=== PATIENT | male | born 1935 | race Caucasian/White ===

== ENCOUNTER 2021-08-31 19:09 | Emergency (ER) | payer MEDICARE, SELFPAY ==
[2021-08-31 19:20] VITALS: BP 118/58; PULSE 77; RESP 20; TEMP 36.7; O2SAT 97
--- NOTE | 2021-08-31 19:22 | ED.MALEGU ---
HPI - Male Genitourinary General Chief complaint: Urogenital-Male Stated complaint: Urinary Problem Time Seen by Provider: 08/31/21 19:39 Source: patient, family and RN notes reviewed Mode of arrival: ambulatory (with walker) Limitations: no limitations History of Present Illness HPI Narrative: 86-year-old male presented with son for concern for UTI. Endorses urinary frequency, dysuria, dizziness and weakness over the last week. Son explains patient has history of bladder cancer, completed a PET scan today. Son states symptoms are consistent with previous UTIs. Contacted his physician who recommended he go for evaluation at urgent care. Denies abd pain, n/v/d/f/c. Related Data Home Medications Medication Instructions Recorded Confirmed amiodarone 200 mg PO DAILY 08/31/21 08/31/21 atorvastatin 40 mg PO DAILY 08/31/21 08/31/21 carvedilol 3.125 mg PO BID 08/31/21 08/31/21 clopidogrel [Plavix] 75 mg PO DAILY 08/31/21 08/31/21 donepezil 5 mg PO HS 08/31/21 08/31/21 finasteride 5 mg PO DAILY 08/31/21 08/31/21 furosemide 20 mg PO DAILY 08/31/21 08/31/21 pantoprazole 40 mg PO QAM 08/31/21 08/31/21 potassium chloride 20 meq PO DAILY 08/31/21 08/31/21 sertraline 100 mg PO DAILY 08/31/21 08/31/21 tamsulosin 0.4 mg PO DAILY 08/31/21 08/31/21 Allergies Allergy/AdvReac Type Severity Reaction Status Date / Time metformin Allergy Diarrhea Verified 08/31/21 19:41 venlafaxine Allergy Unknown Verified 08/31/21 19:41 Review of Systems Review of Systems: CONSTITUTIONAL: Denies body aches, fever, chills, or sweats. CARDIOVASCULAR: Denies chest pain, palpitations, or edema. RESPIRATORY: Denies cough or dyspnea. GASTROINTESTINAL: Denies abdominal pain, nausea, vomiting, or diarrhea. GENITOURINARY: Reports frequency, urgency, denies dysuria, hematuria, flank pain SKIN: Denies rash, itching, or wounds. MUSCULOSKELETAL: Denies back pain or myalgia. PMFSH Comments At time of signature, I have reviewed and agree with nursing past medical, surgical, social and family history unless otherwise noted. Please see nursing chart for further information. There is no relevant family history pertinent to the presenting complaint Exam Narrative: GENERAL: ill-appearing, in no acute distress. HEAD: Normocephalic EYES: EOMI. . ENT: Mucous membranes pink and moist. NECK: Normal AROM. Supple. CHEST: No respiratory distress. Clear to auscultation. HEART: Regular rate and rhythm. ABDOMEN: Soft, nontender, nondistended, normal active bowel sounds. No CVA tenderness MUSCULOSKELETAL: No bony tenderness. SKIN: Warm, dry, no rash. pale, poor turgor NEURO: No focal deficits. A&ox3 Gait slow,unsteady; walker PSYCH: Normal affect. No signs of depression or anxiety. Course Course Emergency Course: Patient is aware of diagnosis, understands and agrees to treatment plan. Anticipatory guidance given. Patient agrees to follow-up as directed and is aware of reasons to seek care at the emergency department. Portions of this record may have been created with voice recognition software Level of Care: Express Care Visit Vital Signs Vital signs: Vital Signs Temperature 98.1 F 08/31/21 19:20 Pulse Rate 77 08/31/21 19:20 Respiratory Rate 20 08/31/21 19:20 Blood Pressure 118/58 L 08/31/21 19:20 Pulse Oximetry 97 08/31/21 19:20 Temperature 98.1 F 08/31/21 19:44 Pulse Rate 77 08/31/21 19:44 Respiratory Rate 20 08/31/21 19:44 Blood Pressure 118/58 L 08/31/21 19:44 Pulse Oximetry 97 08/31/21 19:44 Reviewed MDM - Male Genitourinary MDM Narrative Medical decision making narrative: Urine dip is reviewed with patient and son. Patient is advised to go to ER for further evaluation of his additional weakness and dizziness given his medical history. He is aware of the risks associated with not going to the ER including deteriorating condition and . They declined to go at this time and state they will appreciate an
[2021-08-31 19:44] VITALS: BP 118/58; PULSE 77; RESP 20; TEMP 36.7; O2SAT 97
== END 2021-08-31 20:23 | disposition home or self-care (01) ==
PROVIDERS: Emergency Provider Nurse Practitioner Family
DX: N39.0 Urinary tract infection, site not specified (principal); F03.90 Unspecified dementia, unspecified severity, without behavioral disturbance, psychotic disturbance, mood disturbance, and anxiety; I48.91 Unspecified atrial fibrillation; E78.00 Pure hypercholesterolemia, unspecified; I10 Essential (primary) hypertension; K21.9 Gastro-esophageal reflux disease without esophagitis; E11.9 Type 2 diabetes mellitus without complications; H26.9 Unspecified cataract; F32.A Depression, unspecified; Z95.810 Presence of automatic (implantable) cardiac defibrillator
CPT/HCPCS: 81003; 87077; 87086; 87186; 99213; G0463

== ENCOUNTER 2021-12-21 13:44 | Emergency (ER) | payer MEDICARE, SELFPAY ==
--- NOTE | ~2021-12-21 | XR_ITS ---
[id number] DATE: 12/21/2021 14:55 INDICATION: Posterior right back pain following a fall 2 weeks ago. TECHNIQUE: PA chest. 3 views. COMPARISON: None FINDINGS: Left triple lead pacemaker device with leads in expected position. Normal heart size. Aorti c calcification and unfolding. No hilar or mediastinal enlargement. Mild atelectasis at the right lung base. No pulmonary infiltrate or consolidation, pleural effusion o r pulmonary vascular congestion or pneumothorax is noted otherwise. No right rib fracture is detected. IMPRESSION: Mild right basilar atelectasis; no displaced right rib fractures detected Reviewed, dictated and finalized at [facility]. Reviewed, dictated and finalized at [facility]. IMPRESSION: Mild right basilar atelectasis; no displaced right rib fractures de tected
[2021-12-21 13:50] VITALS: BP 113/50; PULSE 72; RESP 20; TEMP 36.6; O2SAT 98
--- NOTE | 2021-12-21 13:57 | ED.BACK ---
HPI - Back Pain/Injury General Chief Complaint: Back Pain/Injury Stated Complaint: Back Pain Time Seen by Provider: 12/21/21 13:50 Source: patient and RN notes reviewed History of Present Illness HPI Narrative: Patient is an 86-year-old male who presents the urgent care with his sister with complaints of right sided rib/back pain. Patient states that he fell a couple weeks ago onto that side while attempting to get his meals off the front porch. Patient states that he did not lose consciousness at that time and denies of any other acute injuries from the fall. Sister states that he complained of pain directly after the fall which seem to have improved with Tylenol and ibuprofen and now over the last couple days he is complaining of increased pain. Patient denies any chest pain or shortness of breath. Denies of any other recent falls. No other acute complaints. No acute distress noted. Patient aware of the plan of care. Some parts of this dictation were generated by voice recognition software and may contain typographical and/or grammatical inaccuracies. Related Data Home Medications Medication Instructions Recorded Confirmed amiodarone 200 mg tablet 200 mg PO DAILY 08/31/21 08/31/21 atorvastatin 40 mg tablet 40 mg PO DAILY 08/31/21 08/31/21 carvedilol 3.125 mg tablet 3.125 mg PO BID 08/31/21 08/31/21 clopidogrel 75 mg tablet (Plavix) 75 mg PO DAILY 08/31/21 08/31/21 donepezil 5 mg tablet 5 mg PO HS 08/31/21 08/31/21 finasteride 5 mg tablet 5 mg PO DAILY 08/31/21 08/31/21 furosemide 20 mg tablet 20 mg PO DAILY 08/31/21 08/31/21 pantoprazole 40 mg tablet,delayed 40 mg PO QAM 08/31/21 08/31/21 release potassium chloride 20 mEq 20 meq PO DAILY 08/31/21 08/31/21 tablet,extended release(part/cryst) sertraline 100 mg tablet 100 mg PO DAILY 08/31/21 08/31/21 tamsulosin 0.4 mg capsule 0.4 mg PO DAILY 08/31/21 08/31/21 Allergies Allergy/AdvReac Type Severity Reaction Status Date / Time metformin Allergy Diarrhea Verified 08/31/21 19:41 venlafaxine Allergy Unknown Verified 08/31/21 19:41 Review of Systems Review of Systems: CONSTITUTIONAL: Denies fever, chills, or sweats. EYES: Denies visual changes, redness, or discharge. ENT: Denies rhinorrhea, congestion, sore throat, or otalgia. CARDIOVASCULAR: Denies chest pain, palpitations, or edema. RESPIRATORY: Denies cough or dyspnea. GASTROINTESTINAL: Denies abdominal pain, nausea, vomiting, or diarrhea. GENITOURINARY: Denies dysuria or hematuria. SKIN: Denies rash or itching. MUSCULOSKELETAL: Reports of right mid/posterior rib pain NEUROLOGIC: Denies headache, numbness, or weakness. All other systems reviewed are negative, except as documented in HPI. PMFSH Comments At the time of my signature, I reviewed and agree with the nursing past medical, surgical, social, and family history. There is no relevant family history pertinent to the patient complaint. Exam Narrative: GENERAL: This is a well-nourished, well-developed patient, in no apparent distress. HEAD: normocephalic, atraumatic. EYES: PERRL. Sclera clear/white. Vision is grossly intact. EARS: External ears normal NOSE: External nose normal with no obvious nasal discharge, nares without redness, no rhinorrhea. THROAT: Mucous membranes moist NECK: Neck supple CARDIOVASCULAR: Regular rate and rhythm without murmurs, gallops, or rubs. RESPIRATORY: Clear to auscultation. Breath sounds diminished SKIN: warm, intact with no suspicious lesions or rash, good texture and turgor. NEURO: awake, alert, and oriented to person, place and time. There were no obvious focal neurologic abnormalities. EXTREMITIES: No clubbing, cyanosis, or edema. BACK: Nontender midline spine without deformity or crepitance. Mild right-sided thoracic tenderness over the posterior rib cage without ecchymosis or deformity Course Course Level of Care: Express Care Visit Vital Signs Vital signs: Vital Signs Temperature 98 F 12/21/21 13:50 Pulse
== END 2021-12-21 15:20 | disposition home or self-care (01) ==
PROVIDERS: Emergency Provider Nurse Practitioner Family
DX: M54.6 Pain in thoracic spine (principal); F03.90 Unspecified dementia, unspecified severity, without behavioral disturbance, psychotic disturbance, mood disturbance, and anxiety; I48.91 Unspecified atrial fibrillation; E78.00 Pure hypercholesterolemia, unspecified; I10 Essential (primary) hypertension; K21.9 Gastro-esophageal reflux disease without esophagitis; E11.9 Type 2 diabetes mellitus without complications; H26.9 Unspecified cataract; Z85.51 Personal history of malignant neoplasm of bladder; Z95.810 Presence of automatic (implantable) cardiac defibrillator
CPT/HCPCS: 71101; 99213; G0463